=== PATIENT | male | born 1985 | race Caucasian/White ===

== ENCOUNTER → 2017-04-04 | Outpatient (CLI) | payer BC ==
--- NOTE | 2017-04-04 11:16 | DIAGNOSTIC IMAGING REPORT ---
L-SPINE MIN 4 VIEWS ROUTINE HISTORY: Pain BACK PAIN COMPARISON: None. FINDINGS: There is no fracture. No subluxation. Disc spaces are preserved. IMPRESSION: No fracture or subluxation within the lumbar spine. The above report was generated using voice recognition software. It may contain grammatical, syntax or spelling errors. Electronically signed by: Fransisco Romero M.D. 04/04/2017 11:15 AM Dictated Date/Time: 04/04/2017 11:14 AM
--- NOTE | 2017-04-04 11:17 | DIAGNOSTIC IMAGING REPORT ---
SI JOINTS 3 OR MORE VIEWS CLINICAL HISTORY: BACK PAIN pain COMPARISON STUDY: None FINDINGS: Normal sacroiliac joints. No evidence for bony ankylosis or fusion. No abnormal sclerosis. Sacral foramina are symmetric bilaterally. IMPRESSION: Normal study The above report was generated using voice recognition software. It may contain grammatical, syntax or spelling errors. Electronically signed by: Fransisco Romero M.D. 04/04/2017 11:16 AM Dictated Date/Time: 04/04/2017 11:15 AM
== END | disposition home or self-care (01) ==
LOC: C.RAD 10:38
PROVIDERS: ATTEND Internal Medicine Gastroenterology
DX: M54.9 Dorsalgia, unspecified (principal)